=== PATIENT | male | born 2000 | race Hispanic/Latino ===

== ENCOUNTER 2023-01-30 20:20 | Inpatient (IN) | payer SELFPAY ==
[2023-01-30 21:51] LABS: Absolute Lymphocytes (CBC) 1.2 K/uL (0.7-4.9); Hematocrit 42.5 % (39.6-49.0); Lymphocytes % 8.4 % (15.3-44.8); MCV 86.7 fL (80-100)
[2023-01-30] MEDS ORDERED: DIAZEPAM 5 MG TABLET ONE (21:54)
[2023-01-30] MEDS ORDERED: NA CHLORIDE 0.9% 1,000 ML ONE (21:54)
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
[2023-01-30 22:10] LABS: Albumin 4.1 g/dL (3.4-5.0); Bilirubin Direct 0.2 mg/dL (0-0.2); Bilirubin Indirect, Calculated 0.3 mg/dL (0.2-0.8); Bilirubin Total 0.5 mg/dL (0.2-1.0); Magnesium 2.4 mg/dL (1.6-2.4); Potassium 3.5 mEq/L (3.5-5.1)
[2023-01-30 22:17] LABS: Troponin High Sensitivity 138.6 pg/mL (<58.9)
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
[2023-01-30] MEDS ORDERED: ONDANSETRON 4 MG/2 ML VIAL IV PRN (23:06)
[2023-01-30] MEDS ORDERED: LORAZEPAM 0.5 MG TABLET PO PRN (23:06)
[2023-01-30] MEDS ORDERED: ZOLPIDEM TARTRATE 5 MG TABLET PO PRN (23:06)
[2023-01-30] MEDS ORDERED: ACETAMINOPHEN 500 MG TAB PO PRN (23:06)
[2023-01-30] MEDS ORDERED: ASPIRIN 81 MG CHEWABLE TABLET ONE (23:18)
[2023-01-31] MEDS: PIPER TAZO 3.375 GM in NA CHLORIDE 0.9% 100 ML IV SCH ×2 (01:16→08:08)
[2023-01-31 01:58] VITALS: BMI 27.3
[2023-01-31 02:55] LABS: Specific Gravity 1.014 (1.005-1.030); Urine Bilirubin NEGATIVE (Negative); Urine Blood Negative (Negative); Urine Clarity Clear (Clear); Urine Color Colorless (Yellow); Urine Glucose NEGATIVE (Negative); Urine Protein NEGATIVE (Negative); Urine Urobilinogen Normal (Normal)
[2023-01-31 07:48] LABS: Hematocrit 38.6 % (39.6-49.0); Lymphocytes % 18.2 % (15.3-44.8); MCV 85.9 fL (80-100); MPV 8.2 fL (7.6-11.3); RBC Red Blood Cell Count 4.49 M/uL (4.33-5.43)
[2023-01-31 08:00] LABS: Magnesium 2.3 mg/dL (1.6-2.4); Potassium 3.2 mEq/L (3.5-5.1)
[2023-01-31] MEDS ORDERED: POTASSIUM CL SA 10 MEQ TAB PO ONE (10:00)
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
--- NOTE | 2023-01-31 11:11 | RAD REPORT ---
EXAM DESCRIPTION: RAD - Chest Single View - 01/31/2023 10:36 am CLINICAL HISTORY: Pneumonia? COMPARISON: Thorax Wo Con dated 01/30/2023 FINDINGS: Lines: None. Lungs: No evidence of edema or pneumonia. Pleural: No significant pleural effusions or pneumothorax. Cardiac: The heart size is within normal limits. Mediastinum: Within normal limits. Bones: No acute fractures. Other: None IMPRESSION: No acute cardiopulmonary disease.
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
--- NOTE | 2023-01-31 13:09 | EKG ---
Test Date: 2023-01-30 Test Time: 21:59:18 [employer] Coach: LL MEASUREMENT RESULTS: Intervals: Rate: 72 W[place]: 146 QRSD: 92 QT: 372 QTc: 407 [place]: P: 61 W[place]: 146 QRS: 88 T: 56 INTERPRETIVE STATEMENTS: Normal sinus rhythm Normal ECG No previous ECG available for comparison Electronically Signed On 01-31-23 13:08:50 CDT by Garry Li
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
[2023-01-31] MEDS: AMOX/K CLAV 875 MG TAB PO SCH (19:52)
[2023-01-31] MEDS ORDERED: ALBUTEROL 2.5 MG/3 ML NEB SOL NEB PRN (21:06)
[2023-01-31] MEDS ORDERED: AZITHROMYCIN IVPB SCH (21:12)
[2023-01-31] MEDS ORDERED: NA CHLORIDE 0.9% IVPB SCH (21:12)
[2023-01-31] MEDS: AZITHROMYCIN IV 500 MG in NA CHLORIDE 0.9% 250 ML IVPB SCH (22:44)
[2023-01-31] MEDS ORDERED: NA CHLORIDE 0.9% 250 ML ONE (22:55)
[2023-02-01 04:02] LABS: Absolute Lymphocytes (CBC) 2.1 K/uL (0.7-4.9); Hematocrit 39.1 % (39.6-49.0); Lymphocytes % 23.2 % (15.3-44.8); MCV 86.9 fL (80-100); MPV 8.6 fL (7.6-11.3)
[2023-02-01 04:05] LABS: Potassium 4.1 mEq/L (3.5-5.1)
[2023-02-01 08:25] VITALS: O2SAT 98
[2023-02-01] MEDS: AMOX/K CLAV 875 MG TAB PO SCH ×2 (08:59→20:54)
[2023-02-01] MEDS: AZITHROMYCIN IV 500 MG in NA CHLORIDE 0.9% 250 ML IVPB SCH (08:59)
[2023-02-01] MEDS ORDERED: NA CHLORIDE 0.9% 1,000 ML IV ONE (09:12)
[2023-02-01] MEDS ORDERED: Calcium Chloride 10% INJ SYR IV ONE (09:12)
[2023-02-01] MEDS ORDERED: EPINEPHrine 1 MG/10 ML SYR IV ONE (09:12)
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
[2023-02-01 20:22] VITALS: BP 102/36; TEMP 99.3
--- NOTE | 2023-02-02 07:33 | ECHO ---
HEIGHT: 5 ft 8 in WEIGHT: 180 lb 0 oz DATE OF STUDY: 02/01/[address]: Boogie Pelaez MD 2-DIMENSIONAL: YES M.MODE: YES DOPPLER: YES COLOR FLOW: YES TDS: NO PORTABLE: YES DEFINITY: NO BUBBLE STUDY: NO DIAGNOSIS: ELEVATED TROPONIN CARDIAC HISTORY: CATHERIZATION: NO SURGERY: NO PROSTHETIC VALVE: NO PACEMAKER: NO MEASUREMENTS (cm) DIASTOLIC (NORMALS) SYSTOLIC (NORMALS) IVSd 1.1 (0.6-1.2) LA Diam 2.3 (1.9-4.0) LVEF 61% LVIDd 4.5 (3.5-5.7) LVIDs 3.1 (2.0-3.5) %FS 33% LVPWd 1.2 (0.6-1.2) Ao Diam 2.7 (2.0-3.7) 2 DIMENSIONAL ASSESSMENT: RIGHT ATRIUM: NORMAL LEFT ATRIUM: NORMAL RIGHT VENTRICLE: NORMAL LEFT VENTRICLE: NORMAL TRICUSPID VALVE: MILD TR MITRAL VALVE: NORMAL PULMONIC VALVE: MILD PI AORTIC VALVE: NORMAL PERICARDIAL EFFUSION: NONE AORTIC ROOT: NORMAL LEFT VENTRICULAR WALL MOTION: NORMAL DOPPLER/COLOR FLOW: MILD TRICUSPID AND PULMONARY REGURGITATION. COMMENTS: 1. NORMAL LEFT VENTRICULAR EJECTION FRACTION 55-60% WITH NORMAL WALL MOTION. 2. NORMAL DIASTOLIC FUNCTION. 3. MILD TRICUSPID AND PULMONARY REGURGITATION. TECHNOLOGIST: Milena ZAMORA
== END 2023-02-01 21:33 | disposition home or self-care (01) | DRG 922 ==
LOC: ER 20:20 → ERHOLD 22:49 → 2ND 23:21 → OBSVTOIN 01-31 16:07
PROVIDERS: ADMIT Internal Medicine; ATTEND Internal Medicine
DX: T75.1XXA Unspecified effects of drowning and nonfatal submersion, initial encounter (principal); J96.01 Acute respiratory failure with hypoxia; R77.8 Other specified abnormalities of plasma proteins; D72.829 Elevated white blood cell count, unspecified; Z28.311 Partially vaccinated for COVID-19
CPT/HCPCS: 36415; 71045; 71250; 80048; 80076; 81003; 83735; 83880; 84484; 85025; 93005; 93306; 94640; 99285; J0171; J2543; J7030; J7050; J7613